=== PATIENT | female | born 1960 | race American Indian/Alaskan Native ===

== ENCOUNTER 2019-12-13 06:11 | Emergency (ER) | payer BC ==
[2019-12-13] MEDS ORDERED: ONDANSETRON 4 MG/2 ML INJ ONE (06:41)
[2019-12-13] MEDS ORDERED: MORPHINE 4 MG/1 ML INJ IV ONE ×3 (06:42→09:23)
[2019-12-13] MEDS ORDERED: ONDANSETRON 4 MG/2 ML INJ IV ONE (06:44)
--- NOTE | 2019-12-13 06:44 | Emergency Department Report ---
HPI - General Chief Complaint: Abdominal Pain Time Seen by Provider: 12/13/19 06:24 - HPI HPI: 59-year-old female presents to the emergency department from home with complaint of mid to lower abdominal pain, nausea and vomiting, that has gone on since the patient ate dinner last night. She has a past medical history of GERD, previous breast biopsy, and fibroids. She took some Tylenol last night for her symptoms without much relief. No recent travel or sick contacts at home. She denies any fever, dysuria, vaginal bleeding or discharge. Her abdominal pain radiates towards her back. ED Past Medical Hx - Past Medical History Previous Medical History?: Yes Hx GERD: Yes - Surgical History Past Surgical History?: Yes Additional Surgical History: Breast Biopsy, Fibroids - Social History Smoking Status: Never Smoker Substance Use Type: None - Medications Home Medications: Home Medications Medication Instructions Recorded Confirmed Last Taken Type Doxycycline Hyclate [Doxycycline 100 mg PO Q12HR #20 tab 12/13/19 Unknown Rx Hyclate TAB] Ondansetron [Zofran Odt] 4 mg PO Q8HR PRN #15 tab.rapdis 12/13/19 Unknown Rx methylPREDNISolone [Medrol 4MG 4 mg PO QDAY #1 tab.ds.pk 12/13/19 Unknown Rx DOSEPAK (21 tabs)] traMADoL [Ultram 50 MG tab] 50 mg PO Q6HR PRN #12 tablet 12/13/19 Unknown Rx ED Review of Systems ROS: Stated complaint: ABD PAIN Other details as noted in HPI Comment: All other systems reviewed and negative Constitutional: denies: chills, fever Eyes: denies: eye pain, vision change ENT: denies: ear pain, throat pain Respiratory: denies: cough, shortness of breath Cardiovascular: denies: chest pain, palpitations Gastrointestinal: abdominal pain, nausea, vomiting Genitourinary: denies: dysuria, discharge Musculoskeletal: back pain. denies: arthralgia Skin: denies: rash, lesions Neurological: denies: headache, weakness Physical Exam - Physical Exam Physical Exam: GENERAL: The patient is well-developed well-nourished. HENT: Normocephalic. Atraumatic. Patient has moist mucous membranes. EYES: Extraocular motions are intact. NECK: Supple. Trachea is midline. CHEST/LUNGS: Clear to auscultation. There is no respiratory distress noted. HEART/CARDIOVASCULAR: Regular. There is no tachycardia. ABDOMEN: Abdomen is soft. Lower abdominal tenderness to palpation. Patient has normal bowel sounds. There is no abdominal distention. SKIN: Skin is warm and dry. NEURO: The patient is awake, alert, and oriented. The patient is cooperative. Normal speech. MUSCULOSKELETAL: There is no tenderness or deformity. There is no evidence of acute injury. ED Course - Consultations Consultation #1: I spoke with the [employer] on-call, Dr. Grant, regarding the CT findings of fluid-filled and dilated left adnexa. Dr. Grant feels that this is consistent with a hydrosalpinx. She has recommended the patient receive a Medrol Dosepak, 10-day course of doxycycline, and outpatient follow-up with her at the clinic. 12/13/19 09:23 ED Medical Decision Making - Lab Data Result diagrams: 12/13/19 06:47 12/13/19 06:47 - Radiology Data Radiology results: report reviewed, image reviewed interpreted by me: Abdominal x-ray shows nonspecific nonobstructive bowel gas CT abdomen pelvis w con INDICATION / CLINICAL INFORMATION: MAIN: Analia-umbilical and lower quad abd pain x1day, [id number] 100ml. TECHNIQUE: All CT scans at this location are performed using CT dose reduction for ALARA by means of automated exposure control. COMPARISON: None available. FINDINGS: Limited lower thoracic images show no acute lung disease. A small hiatal hernia is identified. ABDOMEN: There is a small amount of abdominal ascites. No significant hepatic abnormality. The gallbladder and liver appear normal. No splenic enlargement. Pancreas is normal with pancreatic duct visualized but not significantly dilated. The kidneys, adrenal glands and small bowel appear normal. No retroperitoneal adenopathy. Pelvis: There is an enlarged heterogeneous and calcified uterus consistent with fibroids. An abnormal serpiginous appearing low attenuation areas seen in the left adnexal region. This may represent dilated fallopian tube or other tubo-ovarian process. There is a small amount of free fluid in the pelvis. No acute colon abnormality. The appendix is identified and appears normal. Osseous structures are normal IMPRESSION: 1. Prominent fluid-filled structure in the left adnexal region may represent hydrosalpinx or left tubo-ovarian inflammatory process. 2. Enlarged fibroid uterus. - Medical Decision Making This patient presents to the emergency department with lower abdominal pain, nausea and vomiting, since last night after dinner. Patient's labs are mostly unremarkable. Abdominal x-ray shows nonspecific nonobstructive bowel gas. CT scan of the abdomen and pelvis with IV contrast shows prominent fluid-filled structure in the left adnexa that may represent hydrosalpinx or left tubo- ovarian inflammatory process, as well as fibroid uterus. The patient has a history of fibroids. She does not have any fever or leukocytosis, and after speaking to the [employer] on-call it appears most consistent with a hydrosalpinx. [employer] recommendation is doxycycline, Medrol Dosepak and outpatient follow-up. Patient was given a few doses of IV analgesia here, IV fluid resuscitation and a dose of IV doxycycline. Her pain has greatly improved prior to discharge and the patient appears safe for discharge home at this time. She will follow-up with [facility] outpatient, but will return to the emergency department with any worsening of her symptoms or any acute distress. Critical Care Time: No Critical care attestation.: If time is entered above; I have spent that time in minutes in the direct care of this critically ill patient, excluding procedure time. ED Disposition Clinical Impression: Hydrosalpinx Nausea & vomiting Qualifiers: Vomiting type: unspecified Vomiting Intractability: unspecified Qualified Code(s): R11.2 - Nausea with vomiting, unspecified Abdominal pain Qualifiers: Abdominal location: lower abdomen, unspecified Qualified Code(s): R10.30 - Lower abdominal pain, unspecified Disposition: DC-01 TO HOME OR SELFCARE Is pt being admited?: No Condition: Stable Instructions: Acute Nausea and Vomiting (ED), Abdominal Pain (ED) Additional Instructions: Please follow-up with the [employer], Dr. Grant, in the next few days regarding your hydrosalpinx. Return to the emergency department with any worsening of your symptoms or any acute distress. You have been prescribed a medication that is sedating and therefore should not be taken prior to driving, working, and responsible for children and in no way should be mixed with alcohol of any quantity. Prescriptions: Doxycycline Hyclate [Doxycycline Hyclate TAB] 100 mg PO Q12HR #20 tab methylPREDNISolone [Medrol 4MG DOSEPAK (21 tabs)] 4 mg PO QDAY #1 tab.ds.pk traMADoL [Ultram 50 MG tab] 50 mg PO Q6HR PRN #12 tablet PRN Reason: Pain Ondansetron [Zofran Odt] 4 mg PO Q8HR PRN #15 tab.rapdis PRN Reason: Nausea Referrals: TRINO GRANT MD [Staff Physician] - 2-3 Days Forms: Work/School Release Form(ED) Time of Disposition: 10:06
[2019-12-13 07:14] LABS: Basophils # (Auto) 0.1 K/mm3 (0.0-0.1); Basophils % (Auto) 0.6 % (0.0-1.8); Hematocrit 45.3 % (30.3-42.9); Hemoglobin 15.4 gm/dl (10.1-14.3); Lymphocytes # (Auto) 0.8 K/mm3 (1.2-5.4); Lymphocytes % (Auto) 9.9 % (13.4-35.0); Mean Corpuscular HGB Conc 34 % (30-34); Mean Corpuscular Volume 90 fl (79-97); Monocytes # (Auto) 0.3 K/mm3 (0.0-0.8); Monocytes % (Auto) 3.3 % (0.0-7.3); Platelet Count 157 K/mm3 (140-440); Red Blood Count 5.06 M/mm3 (3.65-5.03); Red Cell Distribution Width 13.1 % (13.2-15.2)
[2019-12-13 08:05] LABS: Albumin 4.7 g/dL (3.9-5); BUN/Creatinine Ratio 20; Blood Urea Nitrogen 14 mg/dL (7-17); Calcium 10.2 mg/dL (8.4-10.2); Hemolysis Index 117
[2019-12-13 08:08] LABS: Alanine Aminotransferase 13 units/L (7-56)
--- NOTE | 2019-12-13 08:08 | XRay Report ---
SUPINE ABDOMEN 12/13/2019 INDICATION / CLINICAL INFORMATION: Abd pain. COMPARISON: None available. FINDINGS: Intestinal gas pattern is within normal limits. No pneumoperitoneum. No pathologic calcifications are identified projecting over the upper urinary tracts. Lung bases are clear. Signer Name: Surya Keyes MD Signed: 12/13/2019 8:03 AM Workstation Name: [id number]
[2019-12-13] MEDS ORDERED: SODIUM CHLORIDE 0.9% 1000 ML 1,000 ML IV ONE (08:14)
--- NOTE | 2019-12-13 09:11 | Cat Scan Report ---
CT abdomen pelvis w con INDICATION / CLINICAL INFORMATION: MAIN: Analia-umbilical and lower quad abd pain x1day, [id number] 100ml. TECHNIQUE: All CT scans at this location are performed using CT dose reduction for ALARA by means of automated e xposure control. COMPARISON: None available. FINDINGS: Limited lower thoracic images show no acute lung disease. A small hiatal hernia is identified. ABDOMEN: There is a small amount of abdominal ascites. No significant hepatic abnormality. The gallbladder and liver appear normal. No splenic enlargement. Pancreas is normal with pancreatic duct visualized but not significantly dilated. The kidneys, adrenal glands and small bowel appear normal. No retroperitoneal adenopathy. Pelvis: There is an enlarged heterogeneous and calcified uterus consistent with fibroids. An abnormal serpiginous appearing low attenuation areas seen in the left adnexal region. This may rep resent dilated fallopian tube or other tubo-ovarian process. There is a small amount of free fluid in the pelvis. No acute colon abnormality. The appendix is identified and appears normal. Osseous structures are normal IMPRESSION: 1. Prominent fluid-filled structure in the left adnexal region may represent hydrosalpinx or left tub o-ovarian inflammatory process. 2. Enlarged fibroid uterus. Signer Name: Surya Keyes MD Signed: 12/13/2019 9:07 AM Workstation Name: [id number]
[2019-12-13] MEDS ORDERED: methylPREDNISolone Sod Succinate 125 MG/2 ML INJ IV ONE (09:23)
[2019-12-13 09:25] LABS: Bilirubin,Urine NEG (Negative); Blood,Urine NEG (Negative); Color,Urine Yellow (Yellow); Mucus,Urine FEW /HPF; Protein,Urine <15 mg/dL mg/dL (Negative); Urobilinogen,Urine < 2.0 mg/dL (<2.0)
[2019-12-13 09:40] VITALS: BP 144/88
[2019-12-13] MEDS ORDERED: DOXYCYCLINE HYCLATE 100 MG in SODIUM CHLORIDE 0.9% 250ML 250 ML IV ONE (10:00)
== END 2019-12-13 11:17 | disposition home or self-care (01) ==
LOC: ED 06:11
DX: N70.11 Chronic salpingitis (principal); R10.30 Lower abdominal pain, unspecified; R11.2 Nausea with vomiting, unspecified; K21.9 Gastro-esophageal reflux disease without esophagitis; Z98.890 Other specified postprocedural states; Z79.899 Other long term (current) drug therapy
CPT/HCPCS: 36415; 74019; 74177; 80053; 81001; 83690; 85025; 96361; 96365; 96375; 96376; 99284; J2270; J2405; J2930; J7030; J7050; Q9967